=== PATIENT | male | born 1965 | race Caucasian/White ===

== ENCOUNTER 2018-08-19 05:28 | Day surgery (SDC) | payer MEDICAID ==
[~2018-08-19] VITALS: Ht 175.3 cm; Wt 67.6 kg
[2018-08-19] MEDS ORDERED: LACTATED RINGERS 1,000 ML IV SCH (05:30)
[2018-08-19] MEDS ORDERED: BUPIVACAINE/EPINEPH/PF 0.25%/0.0005 10ML ONE (07:17)
[2018-08-19] MEDS ORDERED: MORPHINE SULFATE/PF 1MG/ML 10ML AMP ONE (07:17)
[2018-08-19] MEDS ORDERED: SODIUM CHLORIDE 0.9% 10ML VIAL ONE (07:34)
[2018-08-19] MEDS ORDERED: PROPOFOL 200MG/20ML VIAL IV ONE (07:34)
[2018-08-19] MEDS ORDERED: CEFAZOLIN SODIUM 1000MG/VIAL ONE (07:34)
[2018-08-19] MEDS ORDERED: FENTANYL CITRATE/PF 50MCG/ML 2ML VIAL ONE (07:34)
[2018-08-19] MEDS ORDERED: MIDAZOLAM HCL 2 MG/2 ML VIAL ONE (07:34)
[2018-08-19] MEDS ORDERED: BACITRACIN 50,000 UNITS/VIAL ONE (07:45)
[2018-08-19] MEDS ORDERED: PHENYLEPHRINE HCL 10 MG/ML 1ML (IV VIAL) IV ONE (08:07)
[2018-08-19] MEDS ORDERED: HYDROMORPHONE HCL/PF 2MG/ML CPJ IV PRN (08:30)
[2018-08-19] MEDS ORDERED: ONDANSETRON HCL 4MG/2ML INJ IV PRN ×2 (08:30→09:15)
[2018-08-19] MEDS ORDERED: FENTANYL CITRATE/PF 50MCG/ML 2ML VIAL IV PRN (08:30)
[2018-08-19] MEDS ORDERED: KETOROLAC 30MG/ML VIAL ONE (08:39)
[2018-08-19] MEDS ORDERED: HYDROCODONE/ACETAMINOPHEN 10/325MG TABLET PO PRN (09:15)
[2018-08-19 10:39] VITALS: BP 113/79
== END 2018-08-19 12:45 | disposition home or self-care (01) ==
LOC: OR 05:28
PROVIDERS: ATTEND Orthopaedic Surgery
DX: M23.221 Derangement of posterior horn of medial meniscus due to old tear or injury, right knee (principal); M22.41 Chondromalacia patellae, right knee; M65.861 Other synovitis and tenosynovitis, right lower leg; E66.01 Morbid (severe) obesity due to excess calories
CPT/HCPCS: 29876; 29881; 88305; 88311; 97161; A4216; J0171; J0690; J1885; J2250; J2370; J3010; 97116; J2274; J2704; J3490